=== PATIENT | male | born 1985 | race African-American/Black ===

== ENCOUNTER 2021-08-05 14:05 | Inpatient (IN) | payer MEDICAID, OTHER ==
[~2021-08-05] VITALS: Ht 172.7 cm; Wt 77.1 kg
[2021-08-05] MEDS ORDERED: ZOLPIDEM TARTRATE 10 MG TABLET PO PRN (15:45)
[2021-08-05 15:51] LABS: COVID AG,FIA SOURCE NASOPHARYNGEAL
[2021-08-05] MEDS ORDERED: DiphenhydrAMINE HCL 50 MG/ML VIAL IM ONE (20:00)
[2021-08-05] MEDS ORDERED: HALOPERIDOL LACTATE 5 MG/ML VIAL IM ONE (20:00)
[2021-08-05] MEDS ORDERED: LORazepam 2 MG/ML VIAL IM ONE (20:00)
[2021-08-05 20:20] LABS: AMPHET/METH SCREEN,URINE POSITIVE (NEGATIVE); BARBITURATE SCREEN, URINE NEGATIVE (NEGATIVE); BENZODIAZEPINES SCREEN,URINE NEGATIVE (NEGATIVE); CANNABINOID SCREEN,URINE POSITIVE (NEGATIVE); COCAINE SCREEN,URINE NEGATIVE (NEGATIVE); METHADONE SCREEN, URINE NEGATIVE (NEGATIVE); OPIATE SCREEN,URINE NEGATIVE (NEGATIVE)
[2021-08-05 20:21] LABS: PHENCYCLIDINE SCREEN,URINE NEGATIVE (NEGATIVE)
[2021-08-05 22:02] VITALS: BP 123/68
[2021-08-06] MEDS ORDERED: PETROLATUM,WHITE 28 GM JELLY TP PRN (06:00)
[2021-08-06] MEDS ORDERED: MAG HYDROX/AL HYDROX/SIMETH ES 30 ML SUSPENSION UDCUP PO PRN (06:00)
[2021-08-06] MEDS ORDERED: MAGNESIUM HYDROXIDE SUSPENSION 30 ML UDCUP PO PRN (06:00)
[2021-08-06] MEDS ORDERED: IBUPROFEN 400 MG TABLET PO PRN (06:00)
[2021-08-06] MEDS ORDERED: DOCUSATE SODIUM 100 MG CAPSULE PO PRN (06:00)
[2021-08-06] MEDS ORDERED: CloNIDine HCL 0.1 MG TABLET PO PRN (06:00)
[2021-08-06] MEDS ORDERED: NICOTINE 14 MG/24 HOUR PATCH TD PRN (06:00)
[2021-08-06] MEDS ORDERED: GuaiFENesin/D-METHORPHAN [SUGAR-FREE] 200-20MG/10 ML SYRUP UDCUP PO PRN (06:00)
[2021-08-06] MEDS ORDERED: ONDANSETRON HCL 4 MG TABLET PO PRN (06:00)
[2021-08-06] MEDS ORDERED: ACETAMINOPHEN 325 MG TABLET PO PRN (06:00)
[2021-08-06] MEDS ORDERED: LOPERAMIDE HCL 2 MG CAPSULE PO PRN (06:00)
[2021-08-06] MEDS ORDERED: ALBUTEROL SULFATE HFA 90 MCG/PUFF 8 GM INHALER IH PRN (06:00)
[2021-08-06 08:08] LABS: CHOL/HDL RATIO 3.1 (4.2-7.3); FREE T4 (FREE THYROXINE) 1.31 ng/dL (0.76-1.46); THYROID STIMULATING HORMONE 0.9 uIU/mL (0.36-3.74)
[2021-08-06 16:09] VITALS: BP 105/67
[2021-08-06] MEDS: RisperiDONE 2 MG TABLET PO SCH (20:31)
[2021-08-07 05:27] VITALS: BP 125/84
[2021-08-07] MEDS: HALOPERIDOL 5 MG TABLET PO PRN (08:20)
[2021-08-07] MEDS: LORazepam 2 MG TABLET PO PRN (08:20)
[2021-08-07] MEDS: RisperiDONE 2 MG TABLET PO SCH ×2 (08:24→20:20)
[2021-08-07 08:28] VITALS: BP 109/62
[2021-08-07 16:13] VITALS: BP 121/73
[2021-08-07] MEDS ORDERED: HALOPERIDOL LACTATE 5 MG/ML VIAL ONE (17:29)
[2021-08-07] MEDS ORDERED: DiphenhydrAMINE HCL 50 MG/ML VIAL IM ONE (17:30)
[2021-08-07] MEDS ORDERED: HALOPERIDOL LACTATE 5 MG/ML VIAL IM ONE (17:30)
[2021-08-07] MEDS ORDERED: LORazepam 2 MG/ML VIAL IM ONE (17:30)
[2021-08-08 01:44] VITALS: BP 114/69
[2021-08-08] MEDS: RisperiDONE 2 MG TABLET PO SCH ×2 (08:30→20:21)
[2021-08-08] MEDS: SERTRALINE HCL 50 MG TABLET PO SCH (10:21)
[2021-08-08] MEDS: HALOPERIDOL 5 MG TABLET PO PRN (10:25)
[2021-08-08] MEDS: LORazepam 2 MG TABLET PO PRN (10:25)
[2021-08-09 06:24] VITALS: BP 108/70
[2021-08-09 08:26] VITALS: BP 115/65
[2021-08-09] MEDS: RisperiDONE 2 MG TABLET PO SCH ×2 (08:29→21:00)
[2021-08-09] MEDS: SERTRALINE HCL 50 MG TABLET PO SCH (08:29)
[2021-08-09 16:20] VITALS: BP 143/69
[2021-08-10 06:56] VITALS: BP 101/55
[2021-08-10] MEDS: SERTRALINE HCL 50 MG TABLET PO SCH (08:17)
[2021-08-10] MEDS: RisperiDONE 2 MG TABLET PO SCH ×2 (08:17→21:16)
[2021-08-10 08:24] VITALS: BP 110/61
[2021-08-10] MEDS: LORazepam 2 MG TABLET PO PRN (12:04)
[2021-08-10 16:21] VITALS: BP 111/68
[2021-08-11 06:30] VITALS: BP 101/59
[2021-08-11 08:25] VITALS: BP 117/62
[2021-08-11] MEDS: SERTRALINE HCL 50 MG TABLET PO SCH (09:27)
[2021-08-11] MEDS: RisperiDONE 2 MG TABLET PO SCH (09:27)
[2021-08-11] MEDS: LORazepam 2 MG TABLET PO PRN (09:27)
[2021-08-11] MEDS ORDERED: RISP2TAB45 PO (10:38)
[2021-08-11] MEDS ORDERED: SERT-158 PO (10:38)
[2021-08-11 16:23] VITALS: BP 116/73
== END 2021-08-11 17:18 | disposition home or self-care (01) | DRG 750 ==
LOC: EMS 14:05 → B3A 18:09
DX: F20.0 Paranoid schizophrenia (principal); F10.10 Alcohol abuse, uncomplicated; F32.9 Major depressive disorder, single episode, unspecified; F41.9 Anxiety disorder, unspecified; R03.0 Elevated blood-pressure reading, without diagnosis of hypertension; Z20.822 Contact with and (suspected) exposure to COVID-19; Z53.20 Procedure and treatment not carried out because of patient's decision for unspecified reasons; Z79.899 Other long term (current) drug therapy; Z91.5 Personal history of self-harm; Z81.1 Family history of alcohol abuse and dependence; Z81.4 Family history of other substance abuse and dependence; Z71.41 Alcohol abuse counseling and surveillance of alcoholic; Z71.51 Drug abuse counseling and surveillance of drug abuser; F12.99 Cannabis use, unspecified with unspecified cannabis-induced disorder; F15.99 Other stimulant use, unspecified with unspecified stimulant-induced disorder
CPT/HCPCS: 80061; 84439; 84443; 99285; J1200; J1630; J2060

== ENCOUNTER 2021-11-08 08:03 | Inpatient (IN) | payer MEDICAID, OTHER ==
[~2021-11-08] VITALS: Ht 170.2 cm; Wt 81.8 kg
[~2021-11-08 08:03] MED LIST: RISP2TAB45 PO; SERT-158 PO
[2021-11-08] MEDS ORDERED: DiphenhydrAMINE HCL 50 MG/ML VIAL IM ONE (08:45)
[2021-11-08] MEDS ORDERED: LORazepam 2 MG/ML VIAL IM ONE (08:45)
[2021-11-08] MEDS ORDERED: HALOPERIDOL LACTATE 5 MG/ML VIAL IM ONE (12:15)
[2021-11-08 13:00] LABS: AMPHET/METH SCREEN,URINE NEGATIVE (NEGATIVE); BARBITURATE SCREEN, URINE NEGATIVE (NEGATIVE); BENZODIAZEPINES SCREEN,URINE NEGATIVE (NEGATIVE); CANNABINOID SCREEN,URINE POSITIVE (NEGATIVE); COCAINE SCREEN,URINE NEGATIVE (NEGATIVE); METHADONE SCREEN, URINE NEGATIVE (NEGATIVE); OPIATE SCREEN,URINE NEGATIVE (NEGATIVE)
[2021-11-08 13:01] LABS: PHENCYCLIDINE SCREEN,URINE NEGATIVE (NEGATIVE)
[2021-11-08] MEDS ORDERED: LOPERAMIDE HCL 2 MG CAPSULE PO PRN (13:15)
[2021-11-08] MEDS ORDERED: ACETAMINOPHEN 325 MG TABLET PO PRN (13:15)
[2021-11-08] MEDS ORDERED: ZOLPIDEM TARTRATE 10 MG TABLET PO PRN (13:15)
[2021-11-08] MEDS ORDERED: PROMETHAZINE HCL 25 MG TABLET PO PRN (13:15)
[2021-11-08] MEDS ORDERED: MAG HYDROX/AL HYDROX/SIMETH ES 30 ML SUSPENSION UDCUP PO PRN (13:15)
[2021-11-08] MEDS ORDERED: TUBERCULIN, PURIFIED PROTEIN DERIVATIVE 5 TU/0.1 ML SYRINGE ID ONE (13:15)
[2021-11-08] MEDS ORDERED: HydrOXYzine PAMOATE 50 MG CAPSULE PO PRN (13:15)
[2021-11-08] MEDS ORDERED: GuaiFENesin/D-METHORPHAN [SUGAR-FREE] 200-20MG/10 ML SYRUP UDCUP PO PRN (13:15)
[2021-11-08] MEDS ORDERED: MAGNESIUM HYDROXIDE SUSPENSION 30 ML UDCUP PO PRN (13:15)
[2021-11-08 13:23] LABS: BASOPHILS % (AUTO) 0.6 % (0.0-2.0); EOSINOPHILS % (AUTO) 0.4 % (1.0-6.0); HEMATOCRIT 41.2 % (41-53); HEMOGLOBIN 13.8 g/dL (13.5-17.5); LYMPHOCYTES # (AUTO) 1.3 K/uL (1.0-4.8); MEAN CORPUSCULAR HEMOGLOBIN 28.3 pg (26.0-34.0); MEAN CORPUSCULAR HGB CONC 33.5 G/dL (31.0-37.0); MEAN CORPUSCULAR VOLUME 85 fL (80-100); MONOCYTES # (AUTO) 0.5 K/uL (0.1-1.0); MONOCYTES % (AUTO) 6.3 % (2.0-9.0); NEUTROPHILS # (AUTO) 5.9 K/uL (1.8-7.7); NEUTROPHILS % (AUTO) 75.7 % (40.0-70.0); PLATELET COUNT (AUTO) 223 K/uL (150-450); RED BLOOD CELL COUNT(AUTO) 4.87 MIL/uL (4.50-5.90); RED CELL DISTRIBUTION WIDTH 14.2 % (11.5-14.5)
[2021-11-08 13:32] LABS: ANION GAP 4 mmol/L (8-16); CALCIUM, TOTAL 8.7 mg/dL (8.8-10.5); CARBON DIOXIDE 28 mmol/L (22-29); CHLORIDE 106 mmol/L (98-107); CREATININE 0.95 mg/dL (0.60-1.30); GLOMERULAR FILTR. RATE CALC > 60 mL/min (>60); GLUCOSE,RANDOM 97 mg/dL (70-110); POTASSIUM 3.5 mmol/L (3.5-5.1); SODIUM SERUM 138 mmol/L (136-145); UREA NITROGEN, BLOOD 18 mg/dL (7-18)
[2021-11-08 13:38] LABS: ALANINE AMINOTRANSFERASE 23 U/L (12-78); ALBUMIN 3.6 g/dL (3.4-5.0); ALKALINE PHOSPHATASE 66 U/L (46-116); ASPARTATE AMINOTRANSFERASE 21 U/L (15-37); BILIRUBIN,TOTAL 0.4 mg/dL (0.1-1.0); TOTAL PROTEIN, SERUM 6.3 g/dL (6.4-8.2)
[2021-11-08 18:48] LABS: COVID AG,FIA SOURCE NASAL SWAB
[2021-11-09 07:30] LABS: CHOL/HDL RATIO 2.2 (4.2-7.3); CHOLESTEROL 119 mg/dL (131-200); FREE T4 (FREE THYROXINE) 0.81 ng/dL (0.76-1.46); HDL CHOLESTEROL 53 mg/dL (40-60); LDL CHOL (CALC.) 57 mg/dL (0-130); THYROID STIMULATING HORMONE 1.35 uIU/mL (0.36-3.74); TRIGLYCERIDES 47 mg/dL (15-150)
[2021-11-09 07:42] LABS: HEMOGLOBIN A1C 5.7 % (3.8-5.6)
[2021-11-09] MEDS ORDERED: PALIPERIDONE 1.5 MG ER TABLET PO PRN ×2 (08:00→09:15)
[2021-11-09] MEDS ORDERED: OMEGA-3/DHA/EPA/FISH OIL 1,000 MG CAPSULE PO SCH (09:00)
[2021-11-09] MEDS ORDERED: SERTRALINE HCL 50 MG TABLET PO SCH ×2 (09:00→09:15)
[2021-11-09] MEDS ORDERED: THIAMINE 100 MG TABLET PO SCH (09:00)
[2021-11-09] MEDS ORDERED: PALIPERIDONE PALMITATE 234 MG/1.5 ML SYRINGE IM ONE ×3 (09:00→09:45)
[2021-11-09] MEDS ORDERED: NALTREXONE HCL 50 MG TABLET PO SCH (09:00)
[2021-11-09 09:50] VITALS: BP 153/91
[2021-11-09] MEDS ORDERED: INFLUENZA VIRUS VACCINE QVS 2021-22 (6MO+)/PF 60 MCG/0.5 ML SYRINGE IM. ONE (10:15)
[2021-11-09] MEDS: MULTIVITAMINS WITH MINERALS, THERAPEUTIC TABLET PO SCH (11:27)
[2021-11-09] MEDS: FOLIC ACID 1 MG TABLET PO SCH (11:29)
[2021-11-09 16:24] VITALS: BP 118/70
[2021-11-09] MEDS: OLANZapine 5 MG RAPDIS TABLET PO SCH (17:08)
[2021-11-09] MEDS: THIAMINE 100 MG TABLET PO SCH (17:08)
[2021-11-09] MEDS: MELATONIN 5 MG TABLET PO SCH (20:42)
[2021-11-09] MEDS: LORazepam 2 MG TABLET PO PRN (20:42)
[2021-11-09] MEDS ORDERED: MELATONIN 5 MG TABLET PO SCH (21:00)
[2021-11-09] MEDS ORDERED: PALIPERIDONE 3 MG ER TABLET PO SCH ×2 (21:00)
[2021-11-09] MEDS ORDERED: OLANZapine 10 MG RAPDIS TABLET PO SCH (21:00)
[2021-11-09] MEDS ORDERED: QUEtiapine FUMARATE 100 MG TABLET PO PRN (21:45)
[2021-11-10 01:20] VITALS: BP 127/84
[2021-11-10 08:17] VITALS: BP 146/103
[2021-11-10] MEDS: LORazepam 2 MG TABLET PO PRN ×2 (08:50→17:03)
[2021-11-10] MEDS ORDERED: FLUoxetine HCL 20 MG CAPSULE PO SCH (09:00)
[2021-11-10] MEDS: OMEGA-3/DHA/EPA/FISH OIL 1,000 MG CAPSULE PO SCH (09:47)
[2021-11-10] MEDS: FOLIC ACID 1 MG TABLET PO SCH (09:47)
[2021-11-10] MEDS: FLUoxetine HCL 20 MG CAPSULE PO SCH (09:47)
[2021-11-10] MEDS: NALTREXONE HCL 50 MG TABLET PO SCH (09:47)
[2021-11-10] MEDS: MULTIVITAMINS WITH MINERALS, THERAPEUTIC TABLET PO SCH (09:47)
[2021-11-10] MEDS: OLANZapine 5 MG RAPDIS TABLET PO SCH (09:48)
[2021-11-10] MEDS: THIAMINE 100 MG TABLET PO SCH ×2 (09:48→17:03)
[2021-11-10 16:20] VITALS: BP 108/64
[2021-11-10] MEDS: MELATONIN 5 MG TABLET PO SCH (20:30)
[2021-11-10] MEDS: QUEtiapine FUMARATE 200 MG TABLET PO SCH (20:30)
[2021-11-10] MEDS ORDERED: QUEtiapine FUMARATE 200 MG TABLET PO SCH (21:00)
[2021-11-11 06:10] VITALS: BP 114/68
[2021-11-11] MEDS: NALTREXONE HCL 50 MG TABLET PO SCH (08:22)
[2021-11-11] MEDS: FLUoxetine HCL 20 MG CAPSULE PO SCH (08:22)
[2021-11-11] MEDS: THIAMINE 100 MG TABLET PO SCH ×2 (08:22→17:00)
[2021-11-11] MEDS: FOLIC ACID 1 MG TABLET PO SCH (08:22)
[2021-11-11] MEDS: MULTIVITAMINS WITH MINERALS, THERAPEUTIC TABLET PO SCH (08:22)
[2021-11-11] MEDS: OMEGA-3/DHA/EPA/FISH OIL 1,000 MG CAPSULE PO SCH (08:25)
[2021-11-11 08:57] VITALS: BP 128/80
[2021-11-11 16:13] VITALS: BP 136/85
[2021-11-11] MEDS: QUEtiapine FUMARATE 200 MG TABLET PO SCH (20:23)
[2021-11-11] MEDS: MELATONIN 5 MG TABLET PO SCH (20:23)
[2021-11-12 00:36] VITALS: BP 134/79
[2021-11-12] MEDS ORDERED: FLUO20CA36 PO (08:26)
[2021-11-12] MEDS ORDERED: NALT50TA6 PO (08:26)
[2021-11-12] MEDS ORDERED: QUET200T PO ×2 (08:26→08:31)
[2021-11-12] MEDS ORDERED: MELA5TAB40 PO (08:27)
[2021-11-12] MEDS ORDERED: OMEG-135 PO (08:28)
[2021-11-12] MEDS: MULTIVITAMINS WITH MINERALS, THERAPEUTIC TABLET PO SCH (08:44)
[2021-11-12] MEDS: FLUoxetine HCL 20 MG CAPSULE PO SCH (08:44)
[2021-11-12] MEDS: THIAMINE 100 MG TABLET PO SCH (08:44)
[2021-11-12] MEDS: FOLIC ACID 1 MG TABLET PO SCH (08:44)
[2021-11-12] MEDS: NALTREXONE HCL 50 MG TABLET PO SCH (08:44)
[2021-11-12] MEDS: OMEGA-3/DHA/EPA/FISH OIL 1,000 MG CAPSULE PO SCH (08:45)
[2021-11-13] MEDS ORDERED: PALIPERIDONE PALMITATE 156 MG/ML SYRINGE IM ONE ×2 (09:00)
== END 2021-11-12 09:30 | disposition home or self-care (01) | DRG 750 ==
LOC: EMS 08:03 → B3A 11-09 06:00 → EMS 11-09 09:06
PROVIDERS: ADMIT Psychiatry & Neurology Psychiatry; ATTEND Psychiatry & Neurology Psychiatry
DX: F25.1 Schizoaffective disorder, depressive type (principal); R45.851 Suicidal ideations; Z91.19 Patient's noncompliance with other medical treatment and regimen; F12.90 Cannabis use, unspecified, uncomplicated; I10 Essential (primary) hypertension; Z55.9 Problems related to education and literacy, unspecified; Z79.899 Other long term (current) drug therapy; Z59.9 Problem related to housing and economic circumstances, unspecified; Z63.9 Problem related to primary support group, unspecified; Z65.3 Problems related to other legal circumstances; Z78.1 Physical restraint status; Z20.822 Contact with and (suspected) exposure to COVID-19
CPT/HCPCS: 80053; 80061; 83036; 84439; 84443; 85025; 86592; 99285; G0480; J1200; J1630; J2060; Q9967

== ENCOUNTER 2023-04-11 18:47 | Inpatient (IN) | payer MEDICAID, OTHER ==
[~2023-04-11] VITALS: Ht 182.9 cm; Wt 81.9 kg
[~2023-04-11 18:47] MED LIST changes: +FLUO20CA36 PO; +NALT50TA6 PO; +QUET200T PO; -RISP2TAB45 PO; -SERT-158 PO
[2023-04-11 20:14] LABS: COVID AG,FIA SOURCE NASOPHARYNGEAL
[2023-04-11 20:42] LABS: HEMATOCRIT 36.8 % (41-53); HEMOGLOBIN 12.2 g/dL (13.5-17.5); LYMPHOCYTES # (AUTO) 1.7 K/uL (1.0-4.8); LYMPHOCYTES % (AUTO) 22.8 % (22.0-44.0); MEAN CORPUSCULAR HEMOGLOBIN 28.4 pg (26.0-34.0); MEAN CORPUSCULAR HGB CONC 33.3 G/dL (31.0-37.0); MEAN CORPUSCULAR VOLUME 85 fL (80-100); MONOCYTES # (AUTO) 0.6 K/uL (0.1-1.0); MONOCYTES % (AUTO) 7.3 % (2.0-9.0); NEUTROPHILS # (AUTO) 5.1 K/uL (1.8-7.7); NEUTROPHILS % (AUTO) 66.9 % (40.0-70.0); PLATELET COUNT (AUTO) 306 K/uL (150-450); RED BLOOD CELL COUNT(AUTO) 4.31 MIL/uL (4.50-5.90)
[2023-04-11 20:54] LABS: ANION GAP 7 mmol/L (8-16); CALCIUM, TOTAL 8.7 mg/dL (8.8-10.5); CARBON DIOXIDE 28 mmol/L (22-29); CHLORIDE 103 mmol/L (98-107); CREATININE 0.98 mg/dL (0.60-1.30); GLOMERULAR FILTR. RATE CALC > 60 mL/min (>60); GLUCOSE,RANDOM 105 mg/dL (70-110); SODIUM SERUM 138 mmol/L (136-145)
[2023-04-11 20:56] LABS: ALANINE AMINOTRANSFERASE 24 U/L (12-78); ALBUMIN 3.7 g/dL (3.4-5.0); ALKALINE PHOSPHATASE 115 U/L (46-116); ASPARTATE AMINOTRANSFERASE 25 U/L (15-37); BILIRUBIN,TOTAL 0.4 mg/dL (0.1-1.0); TOTAL PROTEIN, SERUM 6.8 g/dL (6.4-8.2)
[2023-04-11] MEDS ORDERED: HALOPERIDOL 5 MG TABLET PO ONE (21:00)
[2023-04-11] MEDS ORDERED: DiphenhydrAMINE HCL 25 MG CAPSULE PO ONE (21:00)
[2023-04-11] MEDS ORDERED: LORazepam 2 MG TABLET PO ONE (21:00)
[2023-04-11] MEDS ORDERED: HALOPERIDOL 5 MG TABLET PO PRN (21:45)
[2023-04-11 23:56] VITALS: BP 139/78
[2023-04-12 00:15] VITALS: BP 139/78
[2023-04-12] MEDS ORDERED: LOPERAMIDE HCL 2 MG CAPSULE PO PRN (06:30)
[2023-04-12] MEDS ORDERED: CloNIDine HCL 0.1 MG TABLET PO PRN (06:30)
[2023-04-12] MEDS ORDERED: GuaiFENesin/D-METHORPHAN [SUGAR-FREE] 200-20MG/10 ML SYRUP UDCUP PO PRN (06:30)
[2023-04-12] MEDS ORDERED: ACETAMINOPHEN 325 MG TABLET PO PRN (06:30)
[2023-04-12] MEDS ORDERED: ONDANSETRON HCL 4 MG TABLET PO PRN (06:30)
[2023-04-12] MEDS ORDERED: MAG HYDROX/AL HYDROX/SIMETH ES 30 ML SUSPENSION UDCUP PO PRN (06:30)
[2023-04-12] MEDS ORDERED: NICOTINE 14 MG/24 HOUR PATCH TD PRN (06:30)
[2023-04-12] MEDS ORDERED: PETROLATUM,WHITE 28 GM JELLY TP PRN (06:30)
[2023-04-12] MEDS ORDERED: MAGNESIUM HYDROXIDE SUSPENSION 30 ML UDCUP PO PRN (06:30)
[2023-04-12] MEDS ORDERED: ALBUTEROL SULFATE HFA 90 MCG/PUFF 8 GM INHALER IH PRN (06:30)
[2023-04-12] MEDS ORDERED: IBUPROFEN 400 MG TABLET PO PRN (06:30)
[2023-04-12] MEDS ORDERED: DOCUSATE SODIUM 100 MG CAPSULE PO PRN (06:30)
[2023-04-12] MEDS: FLUoxetine HCL 20 MG CAPSULE PO SCH (15:11)
[2023-04-12] MEDS: NALTREXONE HCL 50 MG TABLET PO SCH (15:11)
[2023-04-12] MEDS: QUEtiapine FUMARATE 200 MG TABLET PO SCH (20:40)
[2023-04-12 21:21] VITALS: BP 145/82
[2023-04-13] MEDS: NALTREXONE HCL 50 MG TABLET PO SCH (08:53)
[2023-04-13] MEDS: FLUoxetine HCL 20 MG CAPSULE PO SCH (08:53)
[2023-04-13 09:18] VITALS: BP 133/83
[2023-04-13] MEDS: QUEtiapine FUMARATE 200 MG TABLET PO SCH (20:37)
[2023-04-13 21:39] VITALS: BP 129/76
[2023-04-14] MEDS: FLUoxetine HCL 20 MG CAPSULE PO SCH (08:19)
[2023-04-14] MEDS: NALTREXONE HCL 50 MG TABLET PO SCH (08:19)
[2023-04-14 09:36] VITALS: BP 137/75
[2023-04-14] MEDS: QUEtiapine FUMARATE 200 MG TABLET PO SCH (20:05)
[2023-04-15 08:00] VITALS: BP 147/91
[2023-04-15] MEDS: NALTREXONE HCL 50 MG TABLET PO SCH (09:32)
[2023-04-15] MEDS: FLUoxetine HCL 20 MG CAPSULE PO SCH (09:32)
[2023-04-15] MEDS: QUEtiapine FUMARATE 200 MG TABLET PO SCH (20:43)
[2023-04-15 22:00] VITALS: BP 90/60
[2023-04-16 08:00] VITALS: BP 131/89
[2023-04-16] MEDS: FLUoxetine HCL 20 MG CAPSULE PO SCH (08:46)
[2023-04-16] MEDS: NALTREXONE HCL 50 MG TABLET PO SCH (08:47)
[2023-04-16] MEDS: QUEtiapine FUMARATE 200 MG TABLET PO SCH (20:04)
[2023-04-16 20:30] VITALS: BP 120/75
[2023-04-17 08:00] VITALS: BP 137/85
[2023-04-17] MEDS: FLUoxetine HCL 20 MG CAPSULE PO SCH (08:23)
[2023-04-17] MEDS: NALTREXONE HCL 50 MG TABLET PO SCH (08:23)
[2023-04-17] MEDS: QUEtiapine FUMARATE 200 MG TABLET PO SCH (20:04)
[2023-04-17 21:38] VITALS: BP 124/80
[2023-04-18] MEDS: NALTREXONE HCL 50 MG TABLET PO SCH (08:52)
[2023-04-18] MEDS: FLUoxetine HCL 20 MG CAPSULE PO SCH (08:52)
[2023-04-18] MEDS: QUEtiapine FUMARATE 200 MG TABLET PO SCH (20:20)
[2023-04-18 22:07] VITALS: BP 130/73
[2023-04-19] MEDS: FLUoxetine HCL 20 MG CAPSULE PO SCH (08:01)
[2023-04-19] MEDS: NALTREXONE HCL 50 MG TABLET PO SCH (08:01)
[2023-04-19 09:17] VITALS: BP 99/75
[2023-04-19] MEDS: QUEtiapine FUMARATE 200 MG TABLET PO SCH (20:41)
[2023-04-19 21:59] VITALS: BP 126/86
[2023-04-20 08:05] VITALS: BP 124/89
[2023-04-20] MEDS: NALTREXONE HCL 50 MG TABLET PO SCH (08:07)
[2023-04-20] MEDS: FLUoxetine HCL 20 MG CAPSULE PO SCH (08:07)
[2023-04-20] MEDS: LORazepam 2 MG TABLET PO PRN (20:10)
[2023-04-20] MEDS: QUEtiapine FUMARATE 200 MG TABLET PO SCH (20:10)
[2023-04-20 21:04] VITALS: BP 142/67
[2023-04-20] MEDS: ZOLPIDEM TARTRATE 10 MG TABLET PO PRN (21:11)
[2023-04-21] MEDS: NALTREXONE HCL 50 MG TABLET PO SCH (09:02)
[2023-04-21] MEDS: FLUoxetine HCL 20 MG CAPSULE PO SCH (09:02)
[2023-04-21 09:22] VITALS: BP 154/98
[2023-04-21] MEDS: QUEtiapine FUMARATE 200 MG TABLET PO SCH (20:33)
[2023-04-21 20:59] VITALS: BP 141/77
[2023-04-22 08:00] VITALS: BP 145/77
[2023-04-22] MEDS: FLUoxetine HCL 20 MG CAPSULE PO SCH (08:09)
[2023-04-22] MEDS: NALTREXONE HCL 50 MG TABLET PO SCH (08:09)
[2023-04-22] MEDS: LORazepam 2 MG TABLET PO PRN (19:59)
[2023-04-22] MEDS: QUEtiapine FUMARATE 200 MG TABLET PO SCH (20:15)
[2023-04-22 20:26] VITALS: BP 135/90
[2023-04-22] MEDS: ZOLPIDEM TARTRATE 10 MG TABLET PO PRN (21:31)
[2023-04-23] MEDS: FLUoxetine HCL 20 MG CAPSULE PO SCH (09:24)
[2023-04-23] MEDS: NALTREXONE HCL 50 MG TABLET PO SCH (09:24)
[2023-04-23 10:47] VITALS: BP 123/76
[2023-04-23 21:14] VITALS: BP 139/84
[2023-04-23] MEDS: QUEtiapine FUMARATE 200 MG TABLET PO SCH (21:56)
[2023-04-24] MEDS: FLUoxetine HCL 20 MG CAPSULE PO SCH (08:29)
[2023-04-24] MEDS: NALTREXONE HCL 50 MG TABLET PO SCH (08:29)
[2023-04-24 11:12] VITALS: BP 123/72
[2023-04-24] MEDS: QUEtiapine FUMARATE 200 MG TABLET PO SCH (21:02)
[2023-04-24 21:38] VITALS: BP 119/86
[2023-04-25 08:39] VITALS: BP 135/78
[2023-04-25] MEDS: NALTREXONE HCL 50 MG TABLET PO SCH (09:31)
[2023-04-25] MEDS: FLUoxetine HCL 20 MG CAPSULE PO SCH (09:31)
== END 2023-04-25 13:05 | disposition home or self-care (01) | DRG 750 ==
LOC: EMS 18:47 → 3EI 23:33
PROVIDERS: ADMIT Psychiatry & Neurology Child & Adolescent Psychiatry; ATTEND Psychiatry & Neurology Child & Adolescent Psychiatry
DX: F20.0 Paranoid schizophrenia (principal); R45.851 Suicidal ideations; F41.9 Anxiety disorder, unspecified; F12.90 Cannabis use, unspecified, uncomplicated; Z20.822 Contact with and (suspected) exposure to COVID-19; D64.9 Anemia, unspecified; F32.A Depression, unspecified; Z79.899 Other long term (current) drug therapy
CPT/HCPCS: 80053; 85025; 99285; G0480

== ENCOUNTER 2023-05-06 11:53 | Inpatient (IN) | payer MEDICAID, OTHER ==
[~2023-05-06] VITALS: Ht 180.3 cm; Wt 81.4 kg
[2023-05-06] MEDS ORDERED: LORazepam 2 MG TABLET PO ONE (13:30)
[2023-05-06] MEDS ORDERED: DiphenhydrAMINE HCL 25 MG CAPSULE PO ONE (13:30)
[2023-05-06] MEDS ORDERED: QUEtiapine FUMARATE 100 MG TABLET PO ONE (13:30)
[2023-05-06 13:39] LABS: BASOPHILS % (AUTO) 0.5 % (0.0-2.0); EOSINOPHILS % (AUTO) 1.2 % (1.0-6.0); HEMOGLOBIN 13.3 g/dL (13.5-17.5); LYMPHOCYTES # (AUTO) 1.6 K/uL (1.0-4.8); LYMPHOCYTES % (AUTO) 17.3 % (22.0-44.0); MEAN CORPUSCULAR HEMOGLOBIN 27.7 pg (26.0-34.0); MEAN CORPUSCULAR HGB CONC 32.6 G/dL (31.0-37.0); MEAN CORPUSCULAR VOLUME 85 fL (80-100); MONOCYTES # (AUTO) 0.8 K/uL (0.1-1.0); MONOCYTES % (AUTO) 8.2 % (2.0-9.0); NEUTROPHILS # (AUTO) 6.7 K/uL (1.8-7.7); NEUTROPHILS % (AUTO) 72.8 % (40.0-70.0); PLATELET COUNT (AUTO) 332 K/uL (150-450); RED BLOOD CELL COUNT(AUTO) 4.82 MIL/uL (4.50-5.90); RED CELL DISTRIBUTION WIDTH 13.9 % (11.5-14.5)
[2023-05-06 13:45] LABS: ANION GAP 15 mmol/L (8-16); CALCIUM, TOTAL 9.5 mg/dL (8.8-10.5); CARBON DIOXIDE 24 mmol/L (22-29); CHLORIDE 104 mmol/L (98-107); CREATININE 0.97 mg/dL (0.60-1.30); GLOMERULAR FILTR. RATE CALC > 60 mL/min (>60); GLUCOSE,RANDOM 93 mg/dL (70-110); POTASSIUM 3.6 mmol/L (3.5-5.1); SODIUM SERUM 143 mmol/L (136-145)
[2023-05-06] MEDS ORDERED: DiphenhydrAMINE HCL 50 MG/ML VIAL IM ONE (13:45)
[2023-05-06] MEDS ORDERED: LORazepam 2 MG/ML VIAL IM ONE (13:45)
[2023-05-06] MEDS ORDERED: HALOPERIDOL LACTATE 5 MG/ML VIAL IM ONE (13:45)
[2023-05-06 13:50] LABS: ALANINE AMINOTRANSFERASE 33 U/L (12-78); ALBUMIN 4.2 g/dL (3.4-5.0); ALKALINE PHOSPHATASE 124 U/L (46-116); ASPARTATE AMINOTRANSFERASE 34 U/L (15-37); BILIRUBIN,TOTAL 0.7 mg/dL (0.1-1.0); TOTAL PROTEIN, SERUM 7.9 g/dL (6.4-8.2)
[2023-05-06] MEDS ORDERED: ZOLPIDEM TARTRATE 10 MG TABLET PO PRN (14:15)
[2023-05-06] MEDS ORDERED: HALOPERIDOL 5 MG TABLET PO PRN (14:15)
[2023-05-06] MEDS ORDERED: LORazepam 2 MG TABLET PO PRN (14:15)
[2023-05-06 19:34] LABS: COVID AG,FIA SOURCE NASAL SWAB
[2023-05-07 02:06] VITALS: BP 133/84; PULSE 62; RESP 18; TEMP 97.2; O2SAT 96
[2023-05-07 08:23] VITALS: BP 118/80; PULSE 69; RESP 18; TEMP 98.2
[2023-05-07] MEDS: FLUoxetine HCL 20 MG CAPSULE PO SCH (12:12)
[2023-05-07] MEDS ORDERED: QUET300T19 PO (12:28)
[2023-05-07] MEDS ORDERED: DOCUSATE SODIUM 100 MG CAPSULE PO PRN (12:30)
[2023-05-07] MEDS ORDERED: PETROLATUM,WHITE 28 GM JELLY TP PRN (12:30)
[2023-05-07] MEDS ORDERED: ALBUTEROL SULFATE HFA 90 MCG/PUFF 8 GM INHALER IH PRN (12:30)
[2023-05-07] MEDS ORDERED: MAG HYDROX/AL HYDROX/SIMETH ES 30 ML SUSPENSION UDCUP PO PRN (12:30)
[2023-05-07] MEDS ORDERED: ACETAMINOPHEN 325 MG TABLET PO PRN (12:30)
[2023-05-07] MEDS ORDERED: MAGNESIUM HYDROXIDE SUSPENSION 30 ML UDCUP PO PRN (12:30)
[2023-05-07] MEDS ORDERED: CloNIDine HCL 0.1 MG TABLET PO PRN (12:30)
[2023-05-07] MEDS ORDERED: IBUPROFEN 400 MG TABLET PO PRN (12:30)
[2023-05-07] MEDS ORDERED: ONDANSETRON HCL 4 MG TABLET PO PRN (12:30)
[2023-05-07] MEDS ORDERED: NICOTINE 14 MG/24 HOUR PATCH TD PRN (12:30)
[2023-05-07] MEDS ORDERED: LOPERAMIDE HCL 2 MG CAPSULE PO PRN (12:30)
[2023-05-07] MEDS ORDERED: GuaiFENesin/D-METHORPHAN [SUGAR-FREE] 200-20MG/10 ML SYRUP UDCUP PO PRN (12:30)
[2023-05-07 20:27] VITALS: BP 123/75; PULSE 76; RESP 18; TEMP 97.8; O2SAT 98
[2023-05-07] MEDS: QUEtiapine FUMARATE 200 MG TABLET PO SCH (20:36)
[2023-05-08 08:16] VITALS: BP 141/88; PULSE 85; RESP 18; TEMP 98; O2SAT 99
[2023-05-08] MEDS: FLUoxetine HCL 20 MG CAPSULE PO SCH ×2 (09:00→10:00)
[2023-05-08] MEDS: MUPIROCIN CALCIUM 2% 22 GM OINTMENT NASAL SCH (17:18)
[2023-05-08 20:28] VITALS: BP 146/88; PULSE 80; RESP 19; TEMP 98.1; O2SAT 98
[2023-05-08] MEDS: QUEtiapine FUMARATE 200 MG TABLET PO SCH (20:30)
[2023-05-09] MEDS: FLUoxetine HCL 20 MG CAPSULE PO SCH (09:05)
[2023-05-09] MEDS: MUPIROCIN CALCIUM 2% 22 GM OINTMENT NASAL SCH ×2 (09:06→16:53)
[2023-05-09 09:15] VITALS: BP 125/80; PULSE 100; RESP 19; TEMP 98; O2SAT 25
[2023-05-09 20:44] VITALS: BP 141/95; PULSE 60; RESP 19; TEMP 98; O2SAT 100
[2023-05-09] MEDS: QUEtiapine FUMARATE 200 MG TABLET PO SCH (21:05)
[2023-05-10 08:31] VITALS: BP 143/88; PULSE 67; RESP 18; TEMP 98.2; O2SAT 100
[2023-05-10] MEDS: FLUoxetine HCL 20 MG CAPSULE PO SCH (09:19)
[2023-05-10] MEDS: MUPIROCIN CALCIUM 2% 22 GM OINTMENT NASAL SCH (09:19)
[2023-05-10] MEDS ORDERED: QUET200T30 PO (12:01)
[2023-05-10] MEDS ORDERED: FLUO20CA36 PO (12:01)
== END 2023-05-10 12:30 | disposition home or self-care (01) | DRG 750 ==
LOC: EMS 12:00 → B2S 05-07 00:01
PROVIDERS: ADMIT Psychiatry & Neurology Psychiatry; ATTEND Psychiatry & Neurology Child & Adolescent Psychiatry
DX: F20.0 Paranoid schizophrenia (principal); R45.850 Homicidal ideations; D64.9 Anemia, unspecified; G47.00 Insomnia, unspecified; Z20.822 Contact with and (suspected) exposure to COVID-19; F32.A Depression, unspecified; F41.9 Anxiety disorder, unspecified; Z79.899 Other long term (current) drug therapy
CPT/HCPCS: 80053; 85025; 87081; 99285; G0480; J1200; J1630; J2060